=== PATIENT | female | born 1985 | race African-American/Black ===

== ENCOUNTER 2019-01-08 04:51 | Emergency (ER) | payer MEDICAID ==
[~2019-01-08] VITALS: Ht 157.5 cm; Wt 89.8 kg
[2019-01-08 04:59] VITALS: BP 146/92
[2019-01-08] MEDS ORDERED: HYDROcodone-ACET 7.5/325MG TAB PO ONE (07:00)
== END 2019-01-08 07:39 | disposition home or self-care (01) ==
LOC: ER 04:51
DX: S82.831A Other fracture of upper and lower end of right fibula, initial encounter for closed fracture (principal); F17.210 Nicotine dependence, cigarettes, uncomplicated; Z88.6 Allergy status to analgesic agent; X50.0XXA Overexertion from strenuous movement or load, initial encounter; Y93.89 Activity, other specified; Y99.8 Other external cause status; Y92.89 Other specified places as the place of occurrence of the external cause
CPT/HCPCS: 29515; 73610